=== PATIENT | male | born 1970 | race African-American/Black ===

== ENCOUNTER 2025-06-10 19:03 | Emergency (ER) | payer BC, SELFPAY ==
--- NOTE | ~2025-06-10 | XR_ITS ---
CLINICAL HISTORY: pain 1 view chest x-ray Comparison: None provided Findings: The lungs are clear. Heart size is normal. No acute fracture. IMPRESSION: 1. No acute findings. This document has been electronically signed by: Gamaliel Dan MD on 06/10/2025 20:56:46
--- NOTE | 2025-06-10 19:07 | ECG_ITS ---
Test Reason : CP Blood Pressure : */* mmHG Vent. Rate : 61 BPM Atrial Rate : 61 BPM P-R Int : 194 ms QRS Dur : 72 ms QT Int : 372 ms P-R-T Axes : 40 0 6 degrees QTcB Int : 374 ms Normal sinus rhythm Normal ECG No previous ECGs available Referred By: Generic ED Physician Electronically Signed By: SALUD DIOR MD
[2025-06-10 19:08] VITALS: BP 133/78; BP 161/89; PULSE 60; PULSE 79; RESP 20; TEMP 36.7; O2SAT 98; BMI 25.7
[2025-06-10 19:32] LABS: MANUAL DIFF FLAG NO
[2025-06-10 19:36] LABS: Hematocrit 36.1 % (42.0-52.0); Hemoglobin 12.5 g/dl (14.0-18.0); Imm Gran Abs Auto 0.07 X10*3/uL (0.00-0.03); Imm Gran Pct Auto 1.1 % (0.0-0.4); Lymphocytes Absolute Auto 2.4 X10*3/uL (1.2-4.9); Mean Corpuscular HGB Conc 34.6 g/dl (31.0-36.0); Mean Corpuscular Hemoglobin 29.7 pg (27.0-33.0); Mean Corpuscular Volume 85.7 fL (80.0-98.0); NRBC Abs Auto 0.000 X10*3/uL (0.0-0.012); NRBC Pct Auto 0.0 /100WBC (0.0-0.2); Platelet Count 275 X10*3/uL (160-400); Red Blood Count 4.21 X10*6/uL (4.60-5.80); White Blood Count 6.3 X10*3/uL (4.8-10.8)
--- OUTSIDE RECORDS SUMMARY | 2025-06-10 19:42 | XMS_ITS | Clinical Summary ---
Author Organization [facility] Address [address] [place] [address] Care Team Providers Care Fish Bait Processing Supervisor Name Role Phone Unavailable Primary Care Provider Unavailabl e Allergies No known active allergies Medications amLODIPine (NORVASC) 2.5 MG tablet Take 2.5 mg by mouth daily. 05/01/2021 Active fenofibrate (LOFIBRA) 54 MG tablet Take 54 mg by mouth daily. 06/16/2021 Active lisinopril (PRINIVIL,ZeSTRI L) 40 MG tablet Take 40 mg by mouth daily. 05/01/2021 Active Immunizations Immunization Administration Dates Next Due Tdap 06/24/2021 Social History Tobacco Use Types Packs/Day Years Used Date Smoking Tobacco: Never Assessed Sex and Gender Information Value Date Recorded Sex Assigned at Not on file Legal Sex Male 11:31 PM EDT Gender Identity Not on file Sexual Orientation Not on file Last Filed Vital Signs Vital Sign Reading Time Taken Comments Blood Pressure 163/77 06/24/2021 10:09 AM EDT Pulse 83 06/24/2021 10:09 AM EDT Temperature 37.8 C (100 F) 06/24/2021 10:09 AM EDT Respiratory Rate 18 06/24/2021 10:09 AM EDT Oxygen Saturation 97% 06/24/2021 10:09 AM EDT Inhaled Oxygen Concentration - - Weight - - Height - - Body Mass Index - - Plan of Treatment Health Maintenance Due Date Last Done Comments Hepatitis C Virus Screening 1969 HIV Screening 1982 Hepatitis B Vaccines (1 of 3 - 19+ 3-dose series) 06/01 Colonoscopy 2014 Pneumococcal Vaccines 50+ (1 of 1 - PCV) 2019 Zoster (Shingles) Vaccine (1 of 2) 2019 Influenza Vaccine 03/31/2025 COVID-19 Vaccine ( - 2023- season) 2025 DTaP/Tdap/Td Vaccines (2 - Td or Tdap) 06/24/2031 Insurance [facility] [place]
--- OUTSIDE RECORDS SUMMARY | 2025-06-10 19:43 | XMS_ITS | Clinical Summary ---
Author Organization [facility] Address [address] [place] [address] Phone Care Team Providers Care Experimental Mechanic Spacecraft Name Role Phone HortensiaJoyce Primary Care Provider [phone] Allergies Active Allergy Reactions Criticality Noted Date Comments Cyclobenzaprine Other 10/13/2016 Jittery Medications amLODIPine (NORVASC) 10 mg tabletIndications :Essential hypertension Take 1 tablet (10 mg total) by mouth 1 (one) time each day. 90 each 1 5 Active lisinopril (PRINIVIL,ZESTRIL ) 40 mg tabletIndications :Essential hypertension Take 1 tablet (40 mg total) by mouth 1 (one) time each day. 90 each 1 5 Active OneTouch Ultra Test test stripIndications: Type 2 diabetes mellitus without complication, without long-term current use of insulin ([facility] V24, [facility] V28) Use as instructed. Dx: E11.9. TO TEST BLOOD SUGAR daily as needed 100 each 2 5 Active OneTouch UltraSoft LancetsIndication s:Type 2 diabetes mellitus without complication, without long-term current use of insulin ([facility] V24, [facility] V28) Dx: E11.9. patient checks BG daily as needed 100 each 2 5 Active Active Problems Problem Noted Date Diagnosed Date Abnormal EKG 04/09/2022 Atypical chest pain 04/09/2022 Diabetes 1.5, managed as type 2 ([facility] V24, S/[facility] V28) 04/09/2022 Hypercholesterolemia 04/09/2022 Transient hypertension 04/09/2022 Pulsatile tinnitus 08/02/2020 Overview (06/15/2024): Vascular lobes crossing 7/8 nerve complexes bilaterally; seen by ENT, could consider neurosurgery referral if significant symptoms affecting quality of life Elevated liver function tests 11/19/2019 Back pain 06/15/2019 Overview (06/15/2024): PVSS RUQ pain 11/30/2018 Diabetes mellitus type 2, un complicated ([facility] V24, [facility] V28) 06/18/2018 Obstructive sleep apnea 08/13/2017 Overview (06/15/2024[place] [facility] [place]ysomnogram: Date 08/07/2017; SE 85%; SM 95%; REM 12%; RDI 29 (AHI 39), worse in REM (RDI 41 - AHI 35), Central apneas 1; Obstructive apneas 0; Mixed apneas 0; hypopneas 143; RERAs 42; average oxygen saturation 94% (lowest 80% - without saturations <88% for 5% or more of study); PLMs 1. [facility] Home Sleep Apnea Test: Date 06/10/2021; Wt 214#; BMI 30; DARON (AHI) 7, AI 1; HI 7; Unclassified apneas 0; Obstructive apneas 2; Central apneas 0; Mixed apneas 0; hypopneas 27; average oxygen saturation 89% (lowest 79% with saturations <88% for 5% or more of study) - Obstructive Sleep Apnea - mild; mostly hypopneas; with sleep related hypoventilation by 2020 home sleep apnea test. ENT following Essential hypertension 06/22/2015 Immunizations Immunization Administration Dates Next Due Influenza Quadravalent, MDCK , 0.5ml, preservative free (Flucelvax) 6mo and older 05/13/2022,06/15/2019 Influenza trivalent, 0.5mL ( Fluad) 65yo and older 06/17/2023 Influenza trivalent, 0.5mL, preservative free (Fluarix; FluLaval; Fluzone) ages 6mo and older (Afluria) 3 years and older 05/07/2020,08/01/2018,05/27/2017,2016 Pneumococcal conjugate 20 va lent (Prevnar 20, PCV 20) 2mo and older 11/30/2023 Tdap Tetanus diptheria acell ular pertussis (Boostrix; Adacel) 7yo and older 06/24/2021,11/28/2016 Surgical History Surgery Date Site/Laterality Comments OTHER SURGICAL HISTORY PROCEDURE: DENIES PREVIOUS SURGERY Medical History Medical History Date Comments Diabetes mellitus type 2, co ntrolled, with complications (CMS/HCC V24, [facility] V28) DX:Diabetes mellitus type 2, controlled, with complications ([facility]) Heart disease DX:Heart disease Essential hypertension DX:Essent ial hypertension Family History Medical History Relation Name Comments No Known Problems Aunt No Known Problems Brother No Known Problems Father No Known Problems Maternal Grandfather No Known Problems Maternal Grandmother Diabetes Mother Glaucoma Mother Hypertension Mother No Known Problems Other No Known Problems Paternal Grandfather No Known Problems Paternal Grandmother No Known Problems Sister No Known Problems Uncle Blindness Neg Hx Cataracts Neg Hx Coronary artery disease Neg Hx Macular degeneration Neg Hx Other cancer Neg Hx Strabismus Neg Hx Relation Name Status Comments Aunt Brother Father Maternal Grandfather Maternal Grandmother Mother Other Paternal Grandfather Paternal Grandmother Sister Uncle Social History Tobacco Use Types Packs/Day Years Used Date Smoking Tobacco: Former Cigarettes 1 10 1 - 06/22/2004 Smokeless Tobacco: Never Alcohol Use Standard Drinks/Week Comments Yes 0 (1 standard drink = 0.6 oz pur e alcohol) Sex and Gender Information Value Date Recorded Sex Assigned at Not on file Legal Sex Male 1:48 AM EST Gender Identity Not on file Sexual Orientation Not on file Obstetrics History Last Filed Vital Signs Vital Sign Reading Time Taken Comments Blood Pressure 138/62 10/10/2024 8:48 AM EST Pulse 71 10/10/2024 8:48 AM EST Temperature - - Respiratory Rate - - Oxygen Saturation - - Inhaled Oxygen Concentration - - Weight 89.2 kg (196 lb 11.2 oz) 10/10/2024 8:48 AM EST Height 180.3 cm (5' 11 ) 10/10/2024 8:48 AM EST Body Mass Index 27.43 10/10/2024 8:48 AM EST Plan of Treatment Upcoming Encounters Date Type Department Care Team (Late st Contact Info) Description 11/15/2025 3:00 PM EDT Office Visit Gastroenterology - [address] [place] [id number] Loida Hoang PA [address] [place] [address] Health Maintenance Due Date Last Done Comments Diabetes: Annual Foot Exam 1979 Diabetes: Annual Retina Eye Exam 1979 Hepatitis B Vaccines (1 of 3 - 19+ 3-dose series) 1988 Zoster Vaccines (1 of 2) 2019 HIV Screening 08/09/2022 Social Influencers of Health Screening 08/09/2022 Diabetes: Blood Sugar Control Test (HGBA1C) 05/31/2024 11/30/2023 Depression Screening 08/31/2024 Diabetes: Annual Urine Albumin-Creatinine Ratio (uACR) 11/29/2024 11/30/2023 Diabetes: Annual GFR (Glomerular Filtration Rate) 11/29/2024 11/30/2023, 2021 Hypertension/CHF/CAD Annual BMP Blood Test 11/29/2024 11/30/2023, 2021 COVID-19 Vaccine ( - 2024- season) 2025 10/10/2021, 11/23/2020, 10/26/2020 Influenza Vaccine (#1) 2025 , 06/17/2023, 05/13/2022, Additional history exists Cholesterol Screening (Lipid Panel) 05/13/2029 05/13/2024, 05/13/2024 Colorectal Cancer Screening: Colonoscopy 06/29/2029 06/29/2019 DTaP,Tdap,and Td Vaccines (4 - Td or Tdap) 12/17/2032 12/17/2022, 06/24/2021, 11/28/2016 RSV Immunization Adult Patients (1 - 1-dose 75+ series) 2044 Hepatitis C Screening Completed 11/30/2023 Pneumococcal Vaccine: 50+ Years Completed 11/30/2023 HIB Vaccines Aged Out No longer eligi ble based on patient's age to complete this topic HPV Vaccines Aged Out No longer eligi ble based on patient's age to complete this topic Hepatitis A Vaccines Aged Out No long er eligible based on patient's age to complete this topic IPV Vaccines Aged Out No longer eligi ble based on patient's age to complete this topic MMR Vaccines Aged Out No longer eligi ble based on patient's age to complete this topic Meningococcal ACWY Vaccine Aged Out N o longer eligible based on patient's age to complete this topic Meningococcal B Vaccine Aged Out No l onger eligible based on patient's age to complete this topic RSV Immunization Patients Under 20 months Aged Out No longer eligible based on patient's age to complete this topic Varicella Vaccines Aged Out No longer eligible based on patient's age to complete this topic Procedures Procedure Name Priority Date/Time Associated Diagnosis Comments LIPID PANEL Routine 05/13/2024 HEPATITIS C SCREENING Routine 11/30/2023 URINE ALBUMIN CREATININE RATIO Routine 11/30/2023 ANNUAL BMP BLOOD TEST Routine 11/30/2023 HEMOGLOBIN A1C Routine 11/30/2023 COLONOSCOPY Routine 06/29/2019 from Last 3 Months or Most Recently Relevant to Health Maintenance Results * (ABNORMAL) Lipid panel (05/13/2024) LDL/HDL Ratio 5(A) 0 - 4 Triglycerides 124 0 - 150 mg/dL Cholesterol 138 0 - 200 mg/dL HDL 27(A) >=40 mg/dL LDL Cholesterol 87 0 - 100 mg/dL Blood Venous blood specimen / Unknown Historical Provider LAB BLOOD ORDERABLES Maia l Result * Urine Albumin Creatinine Ratio (11/30/2023) Urine Albumin Creatinine Ratio abstracted Historical Provider HEALTH MAINTENANCE Final Result * Annual BMP Blood Test (11/30/2023) Pathologist [facility] Annual BMP Blood Test abstracted Historical Provider HEALTH MAINTENANCE Final Result * Hepatitis C Screening (11/30/2023) Pathologist [facility] Hepatitis C Screening abstracted Historical Provider HEALTH MAINTENANCE Final Result * Hemoglobin A1c (11/30/2023) [facility] Hemoglobin A1C 6.0 <=6.5 % Blood Venous blood specimen / Unknown Result [facility] Provider LAB BLOOD ORDERABLES Maia l Result * Colonoscopy (06/29/2019) Pathologist [facility] Colonoscopy no interpretation , abstracted Anatomical Region Laterality Modality Other [facility] Provider HEALTH MAINTENANCE Final Result from Last 3 Months or Most Recently Relevant to Health Maintenance Insurance [facility] Care Teams Experimental Mechanic Spacecraft Relationship Specialty Start Date End Date Joyce Bazan DO [address] [place] [id number] PCP - General Internal Medicine 09/30/24
--- OUTSIDE RECORDS SUMMARY | 2025-06-10 19:43 | XMS_ITS | Clinical Summary ---
Author Organization [facility] Address [address] [place] [id number] Care Team Providers Care Manager Stylist Name Role Phone Robert Cervantes MD Primary Care Provider [phone] Social History Tobacco Use Types Packs/Day Years Used Date Smoking Tobacco: Never Assessed Sex and Gender Information Value Date Recorded Sex Assigned at Not on file Gender Identity Not on file Sexual Orientation Not on file Job Start Date Occupation Industry Not on file Not on file Not on file Plan of Treatment Health Maintenance Due Date Last Done Comments Hepatitis B Vaccines (1 of 3 - 3-dose series) 1969 Hepatitis C Screening 1969 COVID-19 Vaccine (#1) 1969 Depression Screening 1981 Preventative Health Evaluation 1987 Colon Cancer Screening (Colonoscopy) 2014 Shingrix-Zoster Vaccine (1 o f 2) 2019 Influenza Vaccine (#1) 2025 9, 05/27/2017, 09/06/2016 DTap / Tdap / Td (2 - Td or Tdap) 11/28/2026 11/28/2016 Pneumococcal Vaccine Aged Out No long er eligible based on patient's age to complete this topic RSV Ped < 20 months Aged Out No longe r eligible based on patient's age to complete this topic Care Teams Manager Stylist Relationship Specialty Start Date End Date Robert Cervantes MD [address] [place] [phone] PCP - General Internal Medicine 10/19/20
--- OUTSIDE RECORDS SUMMARY | 2025-06-10 19:43 | XMS_ITS ---
Author Name [facility] Organization Unknown Encounters Encounter Type Encounter Reason Primary Diagnosis Location Date Emergency Laceration witho ut foreign body of other part of head, initial encounter [facility] 2021 Care Team Organization Name Specialty Phone Email Start Date End Da te [facility] 06/24/2021 04/18/2024 [facility] 2021 2021
[2025-06-10 19:46] LABS: Alanine Aminotransferase 65 U/L (0-40); Albumin Level 4.2 g/dL (3.5-5.0); Alkaline Phosphatase 95 U/L (39-117); Anion Gap 12 (12-20); Aspartate Amino Transferase 51 U/L (5-37); Blood Urea Nitrogen 12 mg/dL (9-16); Calcium 8.5 mg/dL (8.4-10.2); Carbon Dioxide 28 mmol/L (22-29); Chloride 108 mmol/L (96-108); Creatinine Clr Calc Pharmacy 81.5; Estimated Glomerular Filt Rate > 60; Potassium 4.3 mmol/L (3.3-5.1); Sodium 144 mmol/L (135-145); Total Protein 6.9 g/dL (6.5-8.0)
[2025-06-10 19:53] LABS: Troponin-I High Sensitivity 77.6 ng/L (<3.5-35.0)
[2025-06-10 20:45] VITALS: BP 130/82; PULSE 68; RESP 16; O2SAT 97
--- NOTE | 2025-06-10 20:47 | ED_ITS ---
HPI - Chest Pain General Chief Complaint: Chest Pain Stated Complaint: chest pain x45 mins Time Seen by Provider: 06/10/25 20:05 Source: patient Limitations: no limitations History of Present Illness ED Provider: Ree Staples PA-C HPI narrative: 54-year-old male with a history of hypertension, diabetes who presents with chest pain prior to arrival. Patient states he developed left anterior chest discomfort, described as a dull ache, while at work. Patient states he was walking around his workstation at the time. Patient received 324 mg of aspirin pre arrival by EMS, his symptoms have resolved. When he had the pain, it was nonradiating. Denies recent cough or cold symptoms, shortness of breath, diaphoresis nausea vomiting. Patient has not had similar presentation in the past. Related Data Allergies Allergy/AdvReac Type Severity Reaction Status Date / Time cyclobenzaprine (From Allergy Anxiety Verified 06/10/25 19:16 Flexeril) Review of Systems 2 Review of Systems: Yes all other systems are reviewed and are negative Constitutional: Constitutional: Denies fatigue and Denies fever(s) Cardiovascular: Cardiovascular: Reports chest pain, Denies dyspnea and Denies dyspnea on exertion Respiratory: Respiratory: Denies cough, Denies dyspnea and Denies dyspnea on exertion Gastrointestinal: Gastrointestinal: Denies abdominal pain, Denies nausea and Denies vomiting Musculoskeletal: Musculoskeletal: Denies back pain Endocrine: Endocrine: Denies fatigue PMFSH Past Medical History Attestation statement: The following information was validated with the patient. Social History Social History Smoked in Last 30 Days: No Use of substances other than those prescribed or required for medical reasons: No Advance Directives: No Advance Directives Information Provided: Yes Physical Exam 2 Vital Signs: Vital Signs: Last Vital Signs Temp 98.1 F 06/10/25 19:08 Pulse 68 06/10/25 20:45 Resp 16 06/10/25 20:45 BP 130/82 06/10/25 20:45 Pulse Ox 97 06/10/25 20:45 O2 Del Method Room Air 06/10/25 20:45 BMI result Body Mass Index 25.7 Const: Other: Alert well-appearing Orientation/consciousness: patient oriented x3 Chest: Other: Tenderness not elicited with palpation of chest wall Resp: Other: Nonlabored respiration Cardio: Other: Normal peripheral perfusion Skin: Other: Warm dry no rash Neuro: General: patient oriented x3, gait normal, no focal motor deficits and CN's II-XI intact bilaterally Psych: Other: Cooperative Medical Decision Making Medical Decision Making [facility] Narrative: 54-year-old male with a history of hypertension, diabetes who presents with chest pain prior to arrival. Patient states he developed left anterior chest discomfort, described as a dull ache, while at work. Patient states he was walking around his workstation at the time. Patient received 324 mg of aspirin pre arrival by EMS, his symptoms have resolved. When he had the pain, it was nonradiating. Denies recent cough or cold symptoms, shortness of breath, diaphoresis nausea vomiting. Patient has not had similar presentation in the past. Problem: Age, being male hypertension diabetes History: Per patient I have considered the following differential diagnoses: ACS, chest wall strain, costochondritis, pneumonia, viral syndrome, indigestion, PE Plan: ACS was considered, the patient has multiple risk factors for coronary artery disease, screening labs including cardiac enzyme and EKG were obtained. A chest x-ray was not ordered. He has no infectious signs symptoms to suggest pneumonia or viral syndrome, the could have cause costochondritis. He has no objective signs symptoms concerning for DVT, he is not tachycardic he is not short of breath the chest pain is not pleuritic to suggest PE, dimer not indicated. He has no epigastric discomfort it in the description of his pain is not consistent with dyspepsia. I have independently reviewed the following tests: Labs: No leukocytosis, not anemic no electrolyte abnormality, creatinine 1.09, 1st troponin 77.6, delta troponin, 77.3 EKG: Normal sinus rhythm, rate of 61, no ischemic changes no ectopy QTC 374 Chest x-ray:indings: The lungs are clear. Heart size is normal. No acute fracture. IMPRESSION: 1. No acute findings. Differential Diagnosis Differential Diagnoses: The differential diagnosis associated with the presentation includes See medical decision-making Admission/Observation Consideration of admission/observation: Escalation of care including admission/observation considered Not applicable Lab Data [facility] Lab Attestation statement: I reviewed the patient's lab results. 06/10/25 19:27 06/10/25 19:27 Labs: Lab Results 06/10/25 06/10/25 Range/Units 19:27 21:49 WBC 6.3 (4.8-10.8) X10*3/uL RBC 4.21 L (4.60-5.80) X10*6/uL Hgb 12.5 L (14.0-18.0) g/dl Hct 36.1 L (42.0-52.0) % MCV 85.7 (80.0-98.0) fL MCH 29.7 (27.0-33.0) pg MCHC 34.6 (31.0-36.0) g/dl RDW 13.3 (11.0-16.0) % Plt Count 275 (160-400) X10*3/uL MPV 9.7 (9.4-12.4) fL Immature Gran % (Auto) 1.1 H (0.0-0.4) % Neut % (Auto) 50.1 (45-73) % Lymph % (Auto) 37.4 (20-40) % Platte % (Auto) 10.4 (2-11) % Eos % (Auto) 0.5 (0-4) % Baso % (Auto) 0.5 (0-2) % Lymph # (Auto) 2.4 (1.2-4.9) X10*3/uL Platte # (Auto) 0.7 (0.1-1.2) X10*3/uL Eos # (Auto) 0.0 (0.0-0.4) X10*3/uL Baso # (Auto) 0.0 (0.0-0.2) X10*3/uL Abs Immat Gran (auto) 0.07 H (0.00-0.03) X10*3/uL Absolute Neuts (auto) 3.2 (2.0-8.3) x10*3/uL Absolute Nucleated RBC 0.000 (0.0-0.012) X10*3/uL Nucleated RBC % (auto) 0.0 (0.0-0.2) /100WBC Sodium 144 (135-145) mmol/L Potassium 4.3 (3.3-5.1) mmol/L Chloride 108 (96-108) mmol/L Carbon Dioxide 28 (22-29) mmol/L Anion Gap 12 (12-20) BUN 12 (9-16) mg/dL Creatinine 1.09 (0.5-1.4) mg/dL Estim Creat Clear Calc 81.5 Estimated GFR > 60 Random Glucose 199 H (60-115) mg/dL Calcium 8.5 (8.4-10.2) mg/dL Total Bilirubin 0.3 (0.0-1.0) mg/dL AST 51 H (5-37) U/L ALT 65 H (0-40) U/L Alkaline Phosphatase 95 (39-117) U/L Troponin I High Sens 77.6 H 77.3 H (<3.5-35.0) ng/L Total Protein 6.9 (6.5-8.0) g/dL Albumin 4.2 (3.5-5.0) g/dL Independent Interpretation I performed an independent interpretation of an: EKG Radiology Impression Discussion of test interpretation with radiology: I have reviewed the radiologist's reading. Discharge Plan Discharge Clinical Impression: Atypical chest pain Patient Disposition: Home, Self-Care Instructions: Noncardiac Chest Pain (ED) Additional Instructions: All of your screening labs were normal including 2 cardiac enzymes. There were no concerning changes on the EKG in the chest x-ray is clear. Your discomfort is not related to your heart at this time. Be sure to follow up with your primary care provider, they may have you do an outpatient stress test. Call Thursday to make an appointment. Print Language: Persian
[2025-06-10 22:13] LABS: Troponin-I High Sensitivity 77.3 ng/L (<3.5-35.0)
[2025-06-10 22:42] VITALS: BP 114/61; PULSE 67; RESP 16; TEMP 36.4; O2SAT 98
== END 2025-06-10 22:43 | disposition home or self-care (01) ==
PROVIDERS: Physician Assistant Medical; Emergency Provider Emergency Medicine
DX: R07.89 Other chest pain (principal); Z79.899 Other long term (current) drug therapy
CPT/HCPCS: 36415; 71045; 80053; 84484; 85025; 93005; 99283; 99284

== ENCOUNTER → 2025-06-10 19:07 | Outpatient (BNV) | payer BC, SELFPAY | PROVIDERS: Emergency Provider Emergency Medicine; Visit Provider Internal Medicine Cardiovascular Disease | DX: R07.89 Other chest pain (principal) | CPT/HCPCS: 93010 ==

== ENCOUNTER → 2025-06-10 20:25 | Outpatient (BNV) | payer BC, SELFPAY | PROVIDERS: Emergency Provider Emergency Medicine; Visit Provider Radiology Diagnostic Radiology | DX: R07.89 Other chest pain (principal) | CPT/HCPCS: 71045 ==